=== PATIENT | male | born 1945 | race Asian ===

== ENCOUNTER 2022-11-07 21:58 | Emergency (ER) | payer OTHER ==
[~2022-11-07] VITALS: Ht 177.8 cm; Wt 84.8 kg
[2022-11-07 21:58] VITALS: TEMP 98.1
[2022-11-07 22:53] LABS: PLATELET COUNT 164 K/uL (142-355)
[2022-11-07 23:02] LABS: POTASSIUM 4.5 mmol/L (3.6-5.2)
[2022-11-07 23:32] VITALS: BP 173/99
[2022-11-08] MEDS ORDERED: ASPIRIN DR81 MG PO (09:08)
[2022-11-08] MEDS ORDERED: DULO60CA2 PO (09:08)
[2022-11-08] MEDS ORDERED: DECUBI-VITE PO (09:10)
[2022-11-08] MEDS ORDERED: CLOP75TA2 PO (09:11)
[2022-11-08] MEDS ORDERED: POTASSIUM CHLO20 ME1 PO (09:13)
[2022-11-08] MEDS ORDERED: PROSOURCE TF FR PO (09:14)
[2022-11-08] MEDS ORDERED: QUET25TA2 PO ×2 (09:51→09:52)
[2022-11-08] MEDS ORDERED: ROSU10TA PO (09:51)
[2022-11-08] MEDS ORDERED: TIMO0.5S26 OPTH (09:53)
[2022-11-08] MEDS ORDERED: QUETIAPINE50 MG PO (09:53)
== END 2022-11-07 23:32 | disposition still patient (30) ==
LOC: ED 21:58
PROVIDERS: Emergency Medicine
DX: R44.2 Other hallucinations (principal); R45.1 Restlessness and agitation; Z00.8 Encounter for other general examination; I10 Essential (primary) hypertension; I69.320 Aphasia following cerebral infarction; I69.398 Other sequelae of cerebral infarction; R26.89 Other abnormalities of gait and mobility; Z11.52 Encounter for screening for COVID-19
CPT/HCPCS: 36415; 80053; 81002; 85027; 87635; 93005; 99283; U0003